=== PATIENT | female | born 1950 | race Caucasian/White ===

== ENCOUNTER → 2016-11-04 | Outpatient (CLI) | payer MEDICARE ==
--- NOTE | 2016-11-07 11:25 | MM ---
Reason for exam: screening (asymptomatic). Last mammogram was performed 14 years and 3 months ago. History: Patient is postmenopausal. Physical Findings: A clinical breast exam by your physician is recommended on an annual basis and results should be correlated with mammographic findings. MG 3D Screening Mammo W/Cad Bilateral CC and MLO view(s) were taken. Prior study comparison: June 14, 2016, ultrasound, performed at [facility]. There are scattered fibroglandular densities. There is no discrete abnormality. No significant changes when compared with prior studies. ASSESSMENT: Negative, BI-RAD 1 RECOMMENDATION: Routine screening mammogram of both breasts in 1 year.
== END ==
LOC: RADMAMWWP 13:53
PROVIDERS: ATTEND Family Medicine
DX: Z12.31 Encounter for screening mammogram for malignant neoplasm of breast (principal)
CPT/HCPCS: 77063; G0202

== ENCOUNTER 2022-09-21 17:10 | Emergency (ER) | payer MEDICARE ==
[2022-09-21 17:20] VITALS: TEMP 98.2
[2022-09-21] MEDS ORDERED: PROPARACAINE 0.5% OPHTH DROPS 15 ML BTL BOTH EYES STA (17:29)
[2022-09-21] MEDS ORDERED: FLUORESCEIN STRIPS 1 MG STRIP BOTH EYES ONE ×2 (17:29→19:21)
--- NOTE | 2022-09-21 17:33 | ED ---
General Adult HPI - General Chief complaint: Headache Stated complaint: Post-op L eye pain/swelling Time Seen by Provider: 09/21/22 17:21 Source: patient Mode of arrival: ambulatory Limitations: no limitations - History of Present Illness Initial comments: Dictation was produced using [employer]itar dictation software. please excuse any grammatical, word or spelling errors. Chief Complaint: 82-year-old female presents emergency department for left eye pain History of Present Illness: Is a 2-year-old female presents to the emergency room for left eye pain. She is redirected from the urgent care in [place] for further care. Her in store representative is Dr. Landon. July 10 weeks ago patient had cataract surgery to the left eye. She has not had issues with it since then. Patient over the last 2 days has been having eye pain. She is sensitive to light. Shows reports painful eye movements. Denies any fever or constitutional symptoms. Denies any vision loss. The ROS documented in this emergency department record has been reviewed and confirmed by me. Those systems with pertinent positive or negative responses h ave been documented in the HPI. All other systems are other negative and/or noncontributory. PHYSICAL EXAM: General Impression: Alert and oriented x3, not in acute distress HEENT: Normocephalic atraumatic, extra-ocular movements intact, pupils equal and reactive to light bilaterally, mucous membranes moist. Cardiovascular: Heart regular rate and rhythm Chest: Able to complete full sentences, no retractions, no tachypnea Musculoskeletal: Pulses present and equal in all extremities, no peripheral edema Motor: no focal deficits noted Neurological: CN II-XII grossly intact, no focal motor or sensory deficits noted Skin: Intact with no visualized rashes Psych: Normal affect and mood Ocular exam: Injection to the bilateral sclera, pain with palpation to the orbit, pupil mildly constricted. Cornea is not hazy ED course: 72-year-old female presents to emergency department for left ocular p ain. Vital signs upon arrival are within acceptable limits. Nursing notes and chart review was performed Fluorescein testing was negative for any abnormal uptake. Intraocular pressures averages to 11 mmHg which is symmetrical with the right eye. Slit lamp exam did not show any signs of cell and flare. Visual acuity was 20/70 both eyes. Ophthalmology was consulted. Ophthalmology was at the bedside to evaluate and treat patient. Labs are unremarkable. Inflammatory markers are normal. Te mporal arteritis ruled out. , Dr. Medina evaluated patient and was diagnosed with iritis. Patient is prescribed ophthalmic drops. She is given outpatient follow-up. Patient discharged. Was pt. sent in by a medical professional or institution ([facility], NURSING CLINICAL DIRECTOR, urgent care, hospital, or correction...) When possible be specific @ -Urgent care Did you speak to anyone other than the patient for history (EMS, parent, family, police, friend...)? What history was obtained from this source @ -No Did you review nursing and triage notes (agree or disagree)? Why? @ -I reviewed and agree with nursing and triage notes Were old charts reviewed (outside hosp., previous admission, EMS record, old EKG, old radiological studies, urgent care reports/EKG's, correction records)? Report findings @ -No old charts were reviewed Differential Diagnosis (chest pain, altered mental status, abdominal pain women, abdominal pain men, vaginal bleeding, weakness, fever, dyspnea, syncope, headache, dizziness, GI bleed, back pain, seizure, CVA, palpatations, mental health)? @ -Orbital cellulitis, conjunctivitis, endophthalmitis, preseptal cellulitis, temporal arteritis EKG interpreted by me (3pts min.). @ -None done X-rays interpreted by me (1pt min.). @ -None done CT interpreted by me (1pt min.). @ -See above U/S interpreted by me (1pt. min.). @ -None done What testing was considered but not performed or refused? (CT, X-rays, U/S, labs)? Why? @ -None What meds were considered but not given or refused? Why? @ -None Did you discuss the management of the patient with other professionals (professionals i.e. [employer], NURSING CLINICAL DIRECTOR, lab, RT, psych nurse, psychologist social, before school babysitter, teacher, corporate banking officer, field case manager)? Give summary @ -See above Was smoking cessation discussed for >3mins.? @ -No Was critical care preformed (if so, how long)? @ -No Were there social determinants of health that impacted care today? How? (Homelessness, low income, unemployed, alcoholism, drug addiction, transportation, low edu. Level, literacy, decrease access to med. care, skilled nursing, rehab)? @ -No Was there de-escalation of care discussed even if they declined (Discuss DNR or withdrawal of care, Hospice)? DNR status @ -No What co-morbidities impacted this encounter? (DM, HTN, Smoking, COPD, CAD, Cance r, CVA, ARF, Chemo, Hep., AIDS, mental health diagnosis, sleep apnea, morbid obesity)? @ -None Was patient admitted / discharged? Hospital course, mention meds given and route, prescriptions, significant lab abnormalities, going to OR and other pertinent info. @ -See above Undiagnosed new problem with uncertain prognosis? @ -No Drug Therapy requiring intensive monitoring for toxicity (Heparin, Nitro, Insulin, Cardizem)? @ -No Were any procedures done? @ -No Diagnosis/symptom? @ -Iritis Acute, or Chronic, or Acute on Chronic? @ -Acute Uncomplicated (without systemic symptoms) or Complicated (systemic symptoms)? @ -default Side effects of treatment? @ -No Exacerbation, Progression, or Severe Exacerbation? @ -No Poses a threat to life or bodily function? How? (Chest pain, USA, ID, pneumonia, PE, COPD, DKA, ARF, appy, cholecystitis, CVA, Diverticulitis, Homicidal, Suicidal, threat to staff... and all critical care pts) @ -No - Related Data Allergies Allergy/AdvReac Type Severity Reaction Status Date / Time Sulfa (Sulfonamide Allergy Rash/Hives Verified 09/21/22 19:40 Antibiotics) codeine AdvReac Nausea & Verified 09/21/22 19:40 Vomiting Review of Systems ROS Statement: Those systems with pertinent positive or pertinent negative responses have been documented in the HPI. ROS Other: All systems not noted in ROS Statement are negative. Past Medical History Past Medical History: Asthma History of Any Multi-Drug Resistant Organisms: None Reported Past Surgical History: Tonsillectomy, Tubal Ligation Additional Past Surgical History / Comment(s): lumpectomy Past Psychological History: No Psychological Hx Reported Smoking Status: Never smoker Past Alcohol Use History: None Reported Past Drug Use History: None Reported General Exam Limitations: no limitations Course Vital Signs 09/21/22 09/21/22 17:18 19:18 Temperature 98.2 F Pulse Rate 64 63 Respiratory 16 18 Rate Blood Pressure 153/76 142/72 O2 Sat by Pulse 97 97 Oximetry Medical Decision Making - Lab Data Result diagrams: 09/21/22 17:48 09/21/22 17:48 Lab Results 09/21/22 09/21/22 Range/Units 17:48 17:48 WBC 6.0 (3.8-10.6) k/uL RBC 4.67 (3.80-5.40) m/uL Hgb 14.2 (11.4-16.0) gm/dL Hct 42.7 (34.0-46.0) % MCV 91.4 (80.0-100.0) fL MCH 30.4 (25.0-35.0) pg MCHC 33.2 (31.0-37.0) g/dL RDW 13.5 (11.5-15.5) % Plt Count 229 (150-450) k/uL MPV 7.6 Neutrophils % 58 % Lymphocytes % 30 % Monocytes % 5 % Eosinophils % 4 % Basophils % 1 % Neutrophils # 3.5 (1.3-7.7) k/uL Lymphocytes # 1.8 (1.0-4.8) k/uL Monocytes # 0.3 (0-1.0) k/uL Eosinophils # 0.2 (0-0.7) k/uL Basophils # 0.0 (0-0.2) k/uL ESR 13 (0-20) mm/hr Sodium 141 (137-145) mmol/L Potassium 4.0 (3.5-5.1) mmol/L Chloride 104 (98-107) mmol/L Carbon Dioxide 28 (22-30) mmol/L Anion Gap 9 mmol/L BUN 17 (7-17) mg/dL Creatinine 0.74 (0.52-1.04) mg/dL Est GFR (CKD-EPI)AfAm >90 (>60 ml/min/1.73 sqM) Est GFR (CKD-EPI)NonAf 82 (>60 ml/min/1.73 sqM) Glucose 96 (74-99) mg/dL Calcium 9.4 (8.4-10.2) mg/dL C-Reactive Protein 0.8 (<1.0) mg/dL Disposition Clinical Impression: Iritis Disposition: HOME SELF-CARE Condition: Good Instructions (If sedation given, give patient instructions): Iritis (ED) Is patient prescribed a controlled substance at d/c from ED?: No Referrals: Janice Landon MD [STAFF PHYSICIAN] - 1-2 days Time of Disposition: 20:03
[2022-09-21] MEDS ORDERED: KETOROLAC 15 MG/ML 1 ML VIAL IVP STA (17:38)
[2022-09-21] MEDS ORDERED: MAG HYDROX/AL HYDROX/SIMETH 30 ML, HYOSCYAMINE ELIXIR 10 ML, LIDOCAINE VISCOUS 2% 10 ML PO STA ×3 (17:38)
[2022-09-21 18:10] LABS: African American GFR (CKD) >90 (>60 ml/min/1.73 sqM); Anion Gap 9 mmol/L; Blood Urea Nitrogen 17 mg/dL (7-17); C Reactive Protein 0.8 mg/dL (<1.0); Calcium 9.4 mg/dL (8.4-10.2); Carbon Dioxide 28 mmol/L (22-30); Chloride 104 mmol/L (98-107); Glucose 96 mg/dL (74-99); Non-African American GFR(CKD) 82 (>60 ml/min/1.73 sqM); Sodium 141 mmol/L (137-145)
[2022-09-21 18:32] LABS: Basophils % (A) 1 %; Eosinophils # (A) 0.2 k/uL (0-0.7); Eosinophils % (A) 4 %; HCT 42.7 % (34.0-46.0); HGB 14.2 gm/dL (11.4-16.0); Lymphocytes # (A) 1.8 k/uL (1.0-4.8); Lymphocytes % (A) 30 %; MCH 30.4 pg (25.0-35.0); MCHC 33.2 g/dL (31.0-37.0); MCV 91.4 fL (80.0-100.0); Mean Platelet Volume 7.6; Monocytes # (A) 0.3 k/uL (0-1.0); Monocytes % (A) 5 %; Neutrophils # (A) 3.5 k/uL (1.3-7.7); Neutrophils % (A) 58 %; Platelet Count 229 k/uL (150-450); RBC 4.67 m/uL (3.80-5.40); RDW 13.5 % (11.5-15.5)
--- NOTE | 2022-09-21 19:03 | CT ---
EXAMINATION TYPE: CT orbits w con DATE OF EXAM: 09/21/2022 COMPARISON: None HISTORY: LT orbital pain, vision concerns. Post catarac sx Nov. CT DLP: 263 mGycm Automated exposure control for dose reduction was used. CONTRAST: Performed with IV Contrast, patient injected with 100 mL of Isovue 300. Images obtained from the bottom of the maxilla to the top of the frontal sinuses with the IV contrast . There is a 2 cm mucous retention cyst right maxillary sinus. The orbital margins are intact. No evide nce of orbital blowout fracture. No evidence of retro-orbital mass. The globes are symmetric. Nasal b one is intact. Segmented arches appear normal. The maxilla is intact. No pathologic enhancement. Ther e is mucosal thickening right frontal sinus. IMPRESSION: Right frontal sinusitis. No abnormality demonstrated in the orbits.
[2022-09-21 19:19] VITALS: BP 142/72; PULSE 63; RESP 18
[2022-09-21 19:59] LABS: Erythrocyte Sedimentation Rate 13 mm/hr (0-20)
--- NOTE | 2022-09-21 20:15 | CONS ---
CONSULTATION CHIEF COMPLAINT: Pain in the left eye of 2 days' duration. HISTORY OF PRESENT ILLNESS: The patient has pain in the left eye for the last 2 days, associated with photophobia. The patient had cataract surgery in July. The patient is allergic to sulfa and has asthma. Medical history reviewed with the patient. PHYSICAL EXAMINATION: EYES: Vision is 20/60 both eyes with pinhole. Extraocular motility full. Confrontation normal. Pupils are equal and reactive. Left eye shows 2+ conjunctiva injection. Cornea clear. AC shows flare 2+ and cells 1+. Implant is in good position. Retina deferred. ASSESSMENT: 1. Left iritis. 2. Left increased intra-ocular pressure. Intra-ocular pressure was measured around 32 mmHg in the left eye. Right eye was normal with an intraocular pressure of 18. PLAN: To start Alphagan 1 drop twice a day left eye, Xalatan 1 drop once a day left eye, and red Fort 1% 1 drop 4 times a day, left eye. The patient was instructed to report to the emergency room tomorrow if any other problems. The sedimentation rate and C- reactive protein were ordered. CT scan of the orbit was normal. I will see the patient at 9 a.m. on Friday. The patient to report if she continues to have pain. MMODL / IJN: [id number] /
== END 2022-09-21 20:20 | disposition home or self-care (01) ==
LOC: EC 17:10
DX: H20.9 Unspecified iridocyclitis (principal); J45.909 Unspecified asthma, uncomplicated; Z88.1 Allergy status to other antibiotic agents; Z88.2 Allergy status to sulfonamides; Z88.5 Allergy status to narcotic agent
CPT/HCPCS: 99284; 96374; 36415; 80048; 85652; 85025; 86140; 70481; J1885; Q9967